=== PATIENT | female | born 2005 | race African-American/Black ===

== ENCOUNTER 2025-01-02 12:34 | Emergency (ER) | payer MEDICAID, OTHER ==
[~2025-01-02] VITALS: Ht 157.5 cm; Wt 63.6 kg
[2025-01-02 12:46] VITALS: TEMP 97.3
[2025-01-02 14:01] VITALS: BP 129/81; PULSE 70; RESP 16; O2SAT 99
[2025-01-02] MEDS: IBUPROFEN 600 MG TABLET PO ONE (14:19)
== END 2025-01-02 14:17 | disposition home or self-care (01) ==
LOC: EMS 12:34
DX: T19.2XXA Foreign body in vulva and vagina, initial encounter (principal); W44.9XXA Unspecified foreign body entering into or through a natural orifice, initial encounter; Y93.89 Activity, other specified; Y92.89 Other specified places as the place of occurrence of the external cause; Y99.8 Other external cause status
CPT/HCPCS: 99284; Z7502; Z7610